=== PATIENT | female | born 1960 | race Caucasian/White ===

== ENCOUNTER 2017-04-26 11:18 | Emergency (ER) | payer MEDICARE, MEDICAID ==
[2017-04-26 11:28] VITALS: BP 138/86
--- NOTE | 2017-04-26 11:48 | ER Document Report ---
ED Medical Screen (RME) - General Chief Complaint: Fall Injury Stated Complaint: FALL Time Seen by Provider: 04/26/17 11:37 Notes: 56-year-old female states that she has Mnire's disease. Fell on the way to the bathroom whacked her head against the wall. States that she was knocked out. Has blood coming out of her right ear. Has pain in her head, neck, shoulder, collarbone. I have greeted and performed a rapid initial assessment of this patient. A comprehensive ED assessment and evaluation of the patient, analysis of test results and completion of the medical decision making process will be conducted by additional ED providers. TRAVEL OUTSIDE OF THE [place] IN LAST 30 DAYS: No - Related Data Allergies/Adverse Reactions: amitriptyline Allergy (Verified 04/26/17 11:26) Tetracyclines Allergy (Verified 04/26/17 11:26) Past Medical History - Social History Frequency of alcohol use: Rare Drug Abuse: Marijuana Renal/ Medical History: Denies: Hx Peritoneal Dialysis Past Surgical History: Reports: Hx Abdominal Surgery - colostomy, Hx Bowel Surgery, Hx Orthopedic Surgery - left ankle, Hx Tonsillectomy Physical Exam - Vital signs Vitals: Temp Pulse Resp BP Pulse Ox 98.1 F 85 19 138/86 H 100 04/26/17 11:27 04/26/17 11:27 04/26/17 11:27 04/26/17 11:27 04/26/17 11:27 Course - Vital Signs Vital signs: Temp Pulse Resp BP Pulse Ox 98.1 F 85 19 138/86 H 100 04/26/17 11:27 04/26/17 11:27 04/26/17 11:27 04/26/17 11:27 04/26/17 11:27
--- NOTE | 2017-04-26 12:10 | RADIOLOGY REPORT (SQ) ---
EXAM DESCRIPTION: CT HEAD WITHOUT COMPLETED DATE/TIME: 04/26/2017 12:01 pm REASON FOR STUDY: fall, pain COMPARISON: None. TECHNIQUE: Axial images acquired through the brain without intravenous contrast. Images reviewed wi th bone, brain and subdural windows. Images stored on PACS. All CT scanners at this facility use dose modulation, iterative reconstruction, and/or weight based d osing when appropriate to reduce radiation dose to as low as reasonably achievable (ALARA). [facility]: Dose Right [facility]: CareDose [facility]: Dose Right [facility]: Teradose 4D [facility]: Foodoro RADIATION DOSE: CT Rad equipment meets quality standard of care and radiation dose reduction techniq ues were employed. CTDIvol: 64.6 mGy. DLP: 1163 mGy-cm. mGy. LIMITATIONS: None. FINDINGS: VENTRICLES: Normal size and contour. CEREBRUM: No masses. No hemorrhage. No midline shift. No evidence for acute infarction. Normal gra y/white matter differentiation. No areas of low density in the white matter. CEREBELLUM: No masses. No hemorrhage. No alteration of density. No evidence for acute infarction. EXTRAAXIAL SPACES: No fluid collections. No masses. ORBITS AND GLOBE: No intra- or extraconal masses. Normal contour of globe without masses. CALVARIUM: No fracture. PARANASAL SINUSES: No fluid or mucosal thickening. SOFT TISSUES: No mass or hematoma. OTHER: No other significant finding. IMPRESSION: NORMAL BRAIN CT WITHOUT CONTRAST. EVIDENCE OF ACUTE STROKE: NO. COMMENT: Quality ID # [id number]: Final reports with documentation of one or more dose reduction techniques (e.g., Automated exposure control, adjustment of the mA and/or kV according to patient size, use of iterative reconstruction technique) TECHNICAL DOCUMENTATION: JOB ID: [id number]- All Rights Reserved
--- NOTE | 2017-04-26 12:12 | RADIOLOGY REPORT (SQ) ---
EXAM DESCRIPTION: CT CERVICAL SPINE WITHOUT COMPLETED DATE/TIME: 04/26/2017 12:01 pm REASON FOR STUDY: fall, pain COMPARISON: None. TECHNIQUE: Axial images acquired through the cervical spine without intravenous contrast. Images re viewed with lung, soft tissue and bone windows. Reconstructed coronal and sagittal MPR images review ed. Images stored on PACS. All CT scanners at this facility use dose modulation, iterative reconstruction, and/or weight based d osing when appropriate to reduce radiation dose to as low as reasonably achievable (ALARA). [facility]: Dose Right [facility]: CareDose [facility]: Dose Right [facility]: Teradose 4D [facility]: Smart [employer] RADIATION DOSE: CT Rad equipment meets quality standard of care and radiation dose reduction techniq ues were employed. CTDIvol: 8.4 mGy. DLP: 139 mGy-cm. mGy. LIMITATIONS: None. FINDINGS: ALIGNMENT: Anatomic. MINERALIZATION: Normal. VERTEBRAL BODIES: No fractures or dislocation. DISCS: No significant disc disease. FACETS, LATERAL MASSES, POSTERIOR ELEMENTS: No fractures. No dislocation. No acute findings. HARDWARE: None in the spine. VISUALIZED RIBS: No fractures. LUNG APICES AND SOFT TISSUES: No significant or acute findings. OTHER: No other significant finding. IMPRESSION: NO ACUTE OR SIGNIFICANT FINDINGS IN THE CERVICAL SPINE. TECHNICAL DOCUMENTATION: JOB ID: [id number] Quality ID # [id number]: Final reports with documentation of one or more dose reduction techniques (e.g., Au tomated exposure control, adjustment of the mA and/or kV according to patient size, use of iterative reconstruction technique) 2010 [email or web address]- All Rights Reserved
--- NOTE | 2017-04-26 12:33 | RADIOLOGY REPORT (SQ) ---
EXAM DESCRIPTION: CLAVICLE RIGHT COMPLETED DATE/TIME: 04/26/2017 12:21 pm REASON FOR STUDY: fall, pain COMPARISON: None. NUMBER OF VIEWS: Two views. TECHNIQUE: Frontal and angled images were acquired of the right clavicle. LIMITATIONS: None. FINDINGS: MINERALIZATION: Normal. BONES: Disruption of the superior cortex distal right clavicle noted. A nondisplaced fracture is not excluded. SOFT TISSUES: No obvious swelling or foreign body. OTHER: No other significant finding. IMPRESSION: Cortical fracture distal right clavicle not excluded. TECHNICAL DOCUMENTATION: JOB ID: [id number] 2010 [employer]- All Rights Reserved
--- NOTE | 2017-04-26 12:35 | RADIOLOGY REPORT (SQ) ---
EXAM DESCRIPTION: SHOULDER RIGHT 2 OR MORE VIEWS COMPLETED DATE/TIME: 04/26/2017 12:21 pm REASON FOR STUDY: fall, pain COMPARISON: None. NUMBER OF VIEWS: Three views. TECHNIQUE: Internal rotation, external rotation, and Y view images acquired of the right shoulder. LIMITATIONS: None. FINDINGS: MINERALIZATION: Normal. BONES: There is question of cortical disruption superior cortex distal right clavicle. Clinical poi nt of tenderness would be useful. Minimal right AC arthrosis. JOINTS: No dislocation. VISUALIZED LUNGS AND RIBS: No pneumothorax. No rib fracture. SOFT TISSUES: No radiopaque foreign body. OTHER: No other significant finding. IMPRESSION: Possible cortical fracture superior distal right clavicle. Correlate clinically. Minim al right AC arthrosis. . TECHNICAL DOCUMENTATION: JOB ID: [id number] 2010 [employer]- All Rights Reserved
--- NOTE | 2017-04-26 12:53 | ER Document Report ---
ED General - General Chief Complaint: Fall Injury Stated Complaint: FALL Time Seen by Provider: 04/26/17 11:37 TRAVEL OUTSIDE OF THE [place] IN LAST 30 DAYS: No - HPI Notes: Patient is a 56-year-old female with a history of Mnire's, Crohn's with colectomy, hypothyroid, osteoporosis who presents to the ED complaining of right scapular pain, right shoulder pain, headache, and blood from her right ear canal status post fall prior to arrival. Patient states that she was urinating and when she was done she stood up from the toilet and became dizzy. Patient states that she fell and hit her head against the wall. Patient did not have any loss of consciousness, immediate nausea/vomiting. Patient states that she has recurrent issues of this dizziness due to her Mnire's chronically , but this time she hit her head and has some bleeding from her right ear canal with pain. Patient has otherwise been eating and drinking without any difficulties. She has been urinating normally and having normal bowel movements. Patient states that she does have moving her right arm at her shoulder joint because of pain. Patient is accompanied by her granddaughter who states that she is at baseline with mentation and speech. Denies any fever , neck pain, changes in vision/speech/mentation/hearing, URI, sore throat, chest pain, palpitations, syncope, cough, shortness of breath, wheeze, dyspnea, abdominal pain, nausea/vomiting/diarrhea, urinary retention, dysuria, hematuria , loss of control of bowel or bladder, numbness/tingling, saddle anesthesia, muscle paralysis/weakness, or rash. - Related Data Allergies/Adverse Reactions: amitriptyline Allergy (Verified 04/26/17 11:26) Tetracyclines Allergy (Verified 04/26/17 11:26) Past Medical History - Social History Smoking Status: Current Some Day Smoker Frequency of alcohol use: Rare Drug Abuse: Marijuana Family History: Reviewed & Not Pertinent Patient has suicidal ideation: No Patient has homicidal ideation: No Renal/ Medical History: Denies: Hx Peritoneal Dialysis Past Surgical History: Reports: Hx Abdominal Surgery - colostomy, Hx Bowel Surgery, Hx Orthopedic Surgery - left ankle, Hx Tonsillectomy Review of Systems - Review of Systems -: Yes All other systems reviewed and negative Physical Exam - Vital signs Vitals: Temp Pulse Resp BP Pulse Ox 98.1 F 85 19 138/86 H 100 04/26/17 11:27 04/26/17 11:27 04/26/17 11:27 04/26/17 11:27 04/26/17 11:27 - Notes Notes: PHYSICAL EXAMINATION: GENERAL: Well-appearing, well-nourished and in no acute distress. A&Ox4. answers questions appropriately. HEAD: Atraumatic, normocephalic. Non-tender. No france sign EYES: Pupils equal round and reactive to light, extraocular movements intact, sclera anicteric, conjunctiva are normal. No raccoon eyes/entrapment. no nystagmus. ENT: Rt EAC has dried blood. Rt TM shows a small pinpoint perforation. Lt EAC/ TM wnl. Nares patent and without discharge. oropharynx clear without exudates. No tonsilar hypertrophy or erythema. Moist mucous membranes. No sinus tenderness. No left hemotympanum/CSF discharge. NECK: Normal range of motion, supple without lymphadenopathy. No rigidity. No midline tenderness. Spurling negative. NEXUS negative. Chest: No flail chest. equal rise/fall. Non-tender LUNGS: Breath sounds clear to auscultation bilaterally and equal. No wheezes rales or rhonchi. HEART: Regular rate and rhythm without murmurs, rubs, gallops. ABDOMEN: Soft, nontender, nondistended abdomen. No guarding, no rebound. No masses appreciated. Normal bowel sounds present. No CVA tenderness bilaterally. Musculoskeletal: Rt shoulder: LROM due to pain. Strength 4+/5. No obvious step- off, erythema, ecchymosis, or deformity noted. + tenderness to the rt lateral clavicle. + tenderness to the prox humerus. N/V intact distal. FROM at the elbow/wrist/hand. No other deficits noted. Ext's otherwise b/l: FROM to passive/active. Strength 5+/5. No deficits noted. No bony tenderness of extremities. Back: FROM to passive/active. Strength 5+/5. No vertebral point tenderness, stepoffs, or deformities. No other bony tenderness or ecchymosis. SLR negative b/l. Extremities: No cyanosis, clubbing, or edema b/l. Peripheral pulses 2+. Capillary refill less than 2 seconds. NEUROLOGICAL: NIH 0. GCS 15. MMSE intact. Cranial nerves grossly intact. Normal speech, ataxic gait. Normal sensory, motor exams. Reflexes 2+ b/l. CHRISTY' s negative. Pronator drift negative. Heel/oswald, finger/nose wnl. PSYCH: Normal mood, normal affect. SKIN: Warm, Dry, normal turgor, no rashes or lesions noted. Course - Vital Signs Vital signs: Temp Pulse Resp BP Pulse Ox 98.1 F 85 19 138/86 H 100 04/26/17 11:27 04/26/17 11:27 04/26/17 11:27 04/26/17 11:27 04/26/17 11:27 Discharge - Discharge Clinical Impression: Clavicle fracture Qualifiers: Encounter type: initial encounter Clavicle location: lateral end Fracture type : closed Fracture alignment: nondisplaced Laterality: right Qualified Code(s): S42.034A - Nondisplaced fracture of lateral end of right clavicle, initial encounter for closed fracture Perforated tympanic membrane Qualifiers: Laterality: right Qualified Code(s): H72.91 - Unspecified perforation of tympanic membrane, right ear Head injury Qualifiers: Encounter type: initial encounter Qualified Code(s): S09.90XA - Unspecified injury of head, initial encounter Condition: Stable Disposition: HOME, SELF-CARE Instructions: Headache ([facility]), Head Injury Precautions ([facility]), Fractured Clavicle ([facility]), Contusion ([facility]), Oral Narcotic Medication ([facility]) Additional Instructions: Rest, Ice, Compression, Elevation Use sling as directed Tylenol/ibuprofen as needed Light stretches daily Strength exercises as able Moist heat and massage may help F/u with your PCP in 3-5 days for a recheck Schedule an appointment with orthopedics for further evaluation and management Schedule an appointment with ENT for further evaluation and management Return to the ED with any worsening symptoms and/or development of fever, sinus infection, bruising around eyes/ears, worsening ear discharge (clear, purulent, etc) worsening headache, changes in behavior/mentation/speech/vision/hearing, chest pain, palpitations, syncope, shortness of breath, trouble breathing, abdominal pain, n/v/d, blood in stool/urine, loss of control of bowel/bladder, urinary retention, muscle weakness/paralysis, saddle anesthesia, numbness/ tingling, or other worsening symptoms that are concerning to you. Prescriptions: Morphine Sulfate [Morphine Ir 15 Mg Tablet] 15 mg PO TID #10 tablet Ofloxacin 5 drop OT BID 5 Days #5 ml Forms: Elevated Blood Pressure, Smoking Cessation Education Referrals: ISIAH KWON DO [ASSOCIATE] - Follow up in 1 week [facility] [Provider Group] - Follow up in 3-5 days
[2017-04-26] MEDS ORDERED: MORPHINE SULFATE IR 15 MG TABLET PO ONE (13:11)
[2017-04-26] MEDS ORDERED: ONDANSETRON ODT 4 MG TAB (6 TAB/ER DISP) PO PRN (13:18)
[2017-04-26] MEDS ORDERED: ONDANSETRON 4 MG TAB.RAPDIS PO ONE (13:18)
== END 2017-04-26 14:00 | disposition home or self-care (01) ==
LOC: ER 11:18
DX: S42.034A Nondisplaced fracture of lateral end of right clavicle, initial encounter for closed fracture (principal); H72.91 Unspecified perforation of tympanic membrane, right ear; S09.90XA Unspecified injury of head, initial encounter; W01.0XXA Fall on same level from slipping, tripping and stumbling without subsequent striking against object, initial encounter; Y92.002 Bathroom of unspecified non-institutional (private) residence as the place of occurrence of the external cause; H81.09 Meniere's disease, unspecified ear; F17.200 Nicotine dependence, unspecified, uncomplicated; Z93.3 Colostomy status
CPT/HCPCS: 99284; 73000; 73030; 70450; 72125; A9270 ×3; S0119